=== PATIENT | male | born 1975 | race Caucasian/White ===

== ENCOUNTER → 2016-06-12 | Day surgery (SDC) | payer OTHER ==
[2016-06-11 12:11] LABS: ASPARTATE AMINO TRANSFERASE 14 U/L (15-37); BLOOD UREA NITROGEN 12 mg/dL (7-18)
[~2016-06-12] VITALS: Ht 182.9 cm; Wt 92.7 kg
[~2016-06-12] MED LIST: APIX5TAB PO; ASPI81TA50 PO; AZAT50TA9 PO; BIVALIRUDIN 250 MG ONE; CARV25TA12 PO; CLOP75TA22 PO; DIGO125T6 PO; DIGO250T PO; DIPHENHYDRAMINE 50 MG/ML, 1ML ONE; ENAL10TA46 PO; FENTANYL PF 100 MCG/2ML ONE; HEPARIN 1,000 UNITS/ML, 10ML ONE; LIDOCAINE 2%, 20ML ONE; MIDAZOLAM 1 MG/ML, 5ML ONE; VERAPAMIL 2.5 MG/ML, 2ML ONE; methylPREDNISolone SOD SUCC 125 MG/2 ML ONE
== END | disposition home or self-care (01) ==
LOC: CACL 10:23
PROVIDERS: ATTEND Internal Medicine Cardiovascular Disease
DX: I25.10 Atherosclerotic heart disease of native coronary artery without angina pectoris (principal); I25.82 Chronic total occlusion of coronary artery; I25.5 Ischemic cardiomyopathy; Z95.1 Presence of aortocoronary bypass graft; Z95.810 Presence of automatic (implantable) cardiac defibrillator; I48.0 Paroxysmal atrial fibrillation
CPT/HCPCS: 36415; 71020; 80053; 85025; 85610; 85730; 93459; C1760; C1894; J2250; J3010; J3490; Q9967; J0583; J1644; J1200; J2930

== ENCOUNTER 2016-08-04 07:19 | Observation (INO) | payer OTHER ==
[2016-08-01 09:09] VITALS: BP 109/75
[2016-08-01 09:57] LABS: ASPARTATE AMINO TRANSFERASE 65 U/L (15-37); BLOOD UREA NITROGEN 9 mg/dL (7-18)
[~2016-08-04] VITALS: Ht 182.9 cm; Wt 90.0 kg
[~2016-08-04 07:19] MED LIST changes: -BIVALIRUDIN 250 MG ONE; -DIPHENHYDRAMINE 50 MG/ML, 1ML ONE; -FENTANYL PF 100 MCG/2ML ONE; -HEPARIN 1,000 UNITS/ML, 10ML ONE; -LIDOCAINE 2%, 20ML ONE; -MIDAZOLAM 1 MG/ML, 5ML ONE; -VERAPAMIL 2.5 MG/ML, 2ML ONE; -methylPREDNISolone SOD SUCC 125 MG/2 ML ONE
[2016-08-04] MEDS ORDERED: SODIUM CHLORIDE 0.9% 1,000 ML IV SCH (07:35)
[2016-08-04] MEDS ORDERED: AMIO200T42 PO (07:48)
[2016-08-04] MEDS ORDERED: FENTANYL PF 250 MCG/5ML ONE (08:11)
[2016-08-04] MEDS ORDERED: MIDAZOLAM 1 MG/ML, 5ML ONE (08:12)
[2016-08-04] MEDS ORDERED: LIDOCAINE 2%, 20ML ONE (08:27)
[2016-08-04] MEDS ORDERED: DEXAMETHASONE 4 MG/ML, 1ML ONE (09:32)
[2016-08-04] MEDS ORDERED: ONDANSETRON 2MG/ML, 2ML ONE (09:32)
[2016-08-04] MEDS ORDERED: SUCCINYLCHOLINE 20 MG/ML, 10ML ONE (09:32)
[2016-08-04] MEDS ORDERED: PROPOFOL 10 MG/ML, 20ML ONE (09:32)
[2016-08-04] MEDS ORDERED: PROTAMINE SULFATE 10 MG/ML, 5ML ONE (11:20)
[2016-08-04] MEDS ORDERED: MIDAZOLAM 1 MG/ML, 2ML IV PRN (12:00)
[2016-08-04] MEDS ORDERED: FENTANYL PF 100 MCG/2ML IV PRN (12:00)
[2016-08-04] MEDS ORDERED: HYDROmorphone 1 MG/ML, 1ML IV PRN (12:00)
[2016-08-04] MEDS ORDERED: MEPERIDINE/PF 25MG/0.5ML IVPush PRN (12:00)
[2016-08-04] MEDS ORDERED: ZOLPIDEM 5MG TABLET PO PRN (12:00)
[2016-08-04] MEDS ORDERED: OXYcodone 5 MG/5 ML ORAL.SOL UDC PO PRN (12:00)
[2016-08-04] MEDS ORDERED: PROMETHAZINE 25 MG/ML, 1ML IV PRN (12:00)
[2016-08-04] MEDS ORDERED: ONDANSETRON 2MG/ML, 2ML IVPush PRN (12:00)
[2016-08-04] MEDS ORDERED: EPHEDRINE 50 MG/ML, 1ML IVPush PRN (12:00)
[2016-08-04] MEDS ORDERED: ACETAMINOPHEN 325 MG TABLET PO PRN ×2 (12:00)
[2016-08-04] MEDS ORDERED: ACETAMINOPHEN 650 MG/20.3 ML UDC ONE (12:21)
[2016-08-04] MEDS ORDERED: OXYcodone 5 MG/5 ML ORAL.SOL UDC ONE (12:21)
[2016-08-04 13:30] VITALS: BP 94/61
[2016-08-04 13:33] VITALS: BP 94/61
[2016-08-04] MEDS ORDERED: AMIODARONE 200 MG TABLET PO SCH (21:00)
[2016-08-04 21:25] VITALS: BP 94/60
[2016-08-04] MEDS: CARVEDILOL 12.5 MG TABLET PO SCH (21:29)
[2016-08-04] MEDS: APIXABAN 5 MG TABLET PO SCH (21:29)
[2016-08-05 02:41] VITALS: BP 97/63
[2016-08-05 07:05] VITALS: BP 105/72
[2016-08-05] MEDS: CARVEDILOL 12.5 MG TABLET PO SCH (08:37)
[2016-08-05] MEDS: APIXABAN 5 MG TABLET PO SCH (08:37)
[2016-08-05] MEDS ORDERED: ASPIRIN 81 MG TABLET EC PO SCH (09:00)
[2016-08-05] MEDS ORDERED: AZATHIOPRINE 50 MG TABLET PO SCH (09:00)
== END 2016-08-05 14:30 | disposition home or self-care (01) ==
LOC: CACL 07:19 → ORIP 11:40 → 5SO 13:17 → DCLOUNGE 08-05 13:50
PROVIDERS: ADMIT Internal Medicine Cardiovascular Disease; ATTEND Internal Medicine Cardiovascular Disease
DX: I48.91 Unspecified atrial fibrillation (principal); I48.92 Unspecified atrial flutter
CPT/HCPCS: 36415; 71020; 80053; 85025; 85347; 85610; 85730; 93005; 93306; 93613; 93655; 93656; 93662; C1730; C1731; C1732; C1759; C1766; C1893; C1894; G0378; J0330; J1100; J1644; J2250; J2405; J2704; J2720; J3010; J3490; J7500

== ENCOUNTER → 2017-01-22 | Outpatient (CLI) | payer OTHER ==
[~2017-01-22] MED LIST changes: +AMIO200T42 PO; -CLOP75TA22 PO; +CLOP75TA52 PO; -ENAL10TA46 PO; +ENAL10TA71 PO; +OMNIPAQUE 350 MG/ML, 100ML BOTTLE ONE
== END | disposition home or self-care (01) ==
LOC: RAD 14:37
PROVIDERS: ATTEND Specialist
DX: I51.7 Cardiomegaly (principal); M31.4 Aortic arch syndrome [Takayasu]
CPT/HCPCS: 71275; 74175; Q9967

== ENCOUNTER 2017-03-31 15:18 | Inpatient (IN) | payer OTHER ==
[~2017-03-31] VITALS: Ht 182.9 cm; Wt 88.1 kg
[~2017-03-31 15:18] MED LIST changes: -OMNIPAQUE 350 MG/ML, 100ML BOTTLE ONE
[2017-03-31] MEDS ORDERED: AMIODARONE 150 MG in DEXTROSE 5% 100 ML IV ONE (15:30)
[2017-03-31] MEDS ORDERED: SODIUM CHLORIDE 0.9% 1,000ML IVBOLUS ONE (15:30)
[2017-03-31] MEDS ORDERED: AMIODARONE 900 MG in DEXTROSE 5% 482 ML IV PRN (15:30)
[2017-03-31] MEDS ORDERED: SODIUM CHLORIDE FLUSH 10ML SYR IVF ONE (15:30)
[2017-03-31 15:55] LABS: BASOPHILS # (AUTO) 0.04 x10^3/uL (0-0.1); BASOPHILS % (AUTO) 1 % (0-1); EOSINOPHILS # (AUTO) 0.03 x10^3/uL (0-0.4); EOSINOPHILS % (AUTO) 0 % (1-7); LYMPHOCYTES # (AUTO) 2.41 x10^3/uL (1-3.4); LYMPHOCYTES % (AUTO) 24 % (22-44); MD NO; MEAN CORPUSCULAR HEMOGLOBIN 27.4 pg (27.5-34.5); MEAN CORPUSCULAR HGB CONC 32.7 g/dL (33.2-36.2); MEAN CORPUSCULAR VOLUME 83.6 fL (81-97); MEAN PLATELET VOLUME 10.6 fL (7.4-10.4); MONOCYTES # (AUTO) 0.81 x10^3/uL (0.2-0.8); MONOCYTES % (AUTO) 8 % (2-9); NEUTROPHILS # (AUTO) 6.71 x10^3/uL (1.8-6.8); NEUTROPHILS % (AUTO) 67 % (42-75); PLATELET COUNT 228 x10^3/uL (130-400); RED BLOOD COUNT 5.66 x10^6/uL (4.38-5.82); RED CELL DISTRIBUTION WIDTH 13.7 % (9.4-14.8)
[2017-03-31] MEDS ORDERED: FILTER 0.22 MICRON FOR AMIODARONE IV PRN (16:00)
[2017-03-31 16:02] LABS: ALANINE AMINOTRANSFERASE 22 U/L (12-78); ALBUMIN 4.2 g/dL (3.4-5.0); ANION GAP 11 mmol/L (5-15); CALCIUM 9.6 mg/dL (8.5-10.1); CHLORIDE 105 mmol/L (98-107); CREATININE 1.36 mg/dL (0.7-1.3)
[2017-03-31 16:04] LABS: ALKALINE PHOSPHATASE 73 U/L (45-117); BILIRUBIN,TOTAL 2.1 mg/dL (0.2-1.0); TOTAL PROTEIN 7.9 g/dL (6.4-8.2)
[2017-03-31] MEDS ORDERED: ENAL10TA PO (16:38)
[2017-03-31] MEDS ORDERED: POLYETHYLENE GLYCOL 17 GM PACKET PO PRN (17:00)
[2017-03-31] MEDS ORDERED: morphine SULFATE 10 MG/ML, 1ML IVPush PRN (17:00)
[2017-03-31] MEDS ORDERED: HYDROcodone/APAP 5/325 TABLET PO PRN (17:00)
[2017-03-31] MEDS ORDERED: ONDANSETRON 2MG/ML, 2ML IVPush PRN (17:00)
[2017-03-31] MEDS ORDERED: LABETALOL 5MG/ML, 20ML IVPush PRN (17:00)
[2017-03-31] MEDS ORDERED: ONDANSETRON ODT 4 MG PO PRN (17:00)
[2017-03-31 17:07] LABS: TROPONIN I < 0.015 ng/mL (0.000-0.045)
[2017-03-31 19:42] VITALS: BP 95/65
[2017-03-31 20:00] VITALS: BP 98/65
[2017-03-31] MEDS: ENALAPRIL 10 MG TABLET PO SCH (21:00)
[2017-03-31] MEDS ORDERED: ENALAPRIL 5MG TABLET ONE (21:56)
[2017-03-31 22:04] VITALS: BP 98/68
[2017-03-31] MEDS: ENOXAPARIN 40 MG/0.4 ML SQ SCH (22:17)
[2017-03-31] MEDS: CARVEDILOL 25 MG TABLET PO SCH (22:17)
[2017-03-31 23:59] LABS: TROPONIN I 0.023 ng/mL (0.000-0.045)
[2017-04-01 03:07] VITALS: BP 98/61
[2017-04-01 06:10] LABS: BASOPHILS # (AUTO) 0.03 x10^3/uL (0-0.1); BASOPHILS % (AUTO) 0 % (0-1); EOSINOPHILS # (AUTO) 0.06 x10^3/uL (0-0.4); EOSINOPHILS % (AUTO) 1 % (1-7); LYMPHOCYTES # (AUTO) 1.92 x10^3/uL (1-3.4); LYMPHOCYTES % (AUTO) 25 % (22-44); MD NO; MEAN CORPUSCULAR HGB CONC 33.3 g/dL (33.2-36.2); MEAN CORPUSCULAR VOLUME 84.1 fL (81-97); MEAN PLATELET VOLUME 11.1 fL (7.4-10.4); MONOCYTES # (AUTO) 0.54 x10^3/uL (0.2-0.8); MONOCYTES % (AUTO) 7 % (2-9); NEUTROPHILS # (AUTO) 5.08 x10^3/uL (1.8-6.8); NEUTROPHILS % (AUTO) 67 % (42-75); PLATELET COUNT 177 x10^3/uL (130-400); RED BLOOD COUNT 4.99 x10^6/uL (4.38-5.82); RED CELL DISTRIBUTION WIDTH 14.1 % (9.4-14.8)
[2017-04-01 06:13] LABS: CHLORIDE 109 mmol/L (98-107)
[2017-04-01 06:22] LABS: ALANINE AMINOTRANSFERASE 16 U/L (12-78); ALBUMIN 3.3 g/dL (3.4-5.0); ALKALINE PHOSPHATASE 59 U/L (45-117); ANION GAP 8 mmol/L (5-15); BILIRUBIN,TOTAL 1.6 mg/dL (0.2-1.0); CALCIUM 8.5 mg/dL (8.5-10.1); CREATININE 1.19 mg/dL (0.7-1.3); TOTAL PROTEIN 6.5 g/dL (6.4-8.2)
[2017-04-01 07:52] VITALS: BP 102/74
[2017-04-01] MEDS ORDERED: ENALAPRIL 5MG TABLET ONE ×2 (08:27→21:04)
[2017-04-01] MEDS: AZATHIOPRINE 50 MG TABLET PO SCH (08:36)
[2017-04-01] MEDS: ASPIRIN 81 MG TABLET EC PO SCH (08:36)
[2017-04-01] MEDS: CARVEDILOL 25 MG TABLET PO SCH ×2 (08:36→21:12)
[2017-04-01] MEDS: ENALAPRIL 10 MG TABLET PO SCH ×2 (08:38→21:00)
[2017-04-01] MEDS ORDERED: SENNA/DOCUSATE TABLET PO SCH (09:00)
[2017-04-01] MEDS ORDERED: CEFAZOLIN 1,000 MG ONE (12:45)
[2017-04-01] MEDS ORDERED: PROPOFOL 10 MG/ML, 50ML ONE (12:45)
[2017-04-01] MEDS: AMIODARONE 200 MG TABLET PO SCH (14:56)
[2017-04-01 20:54] VITALS: BP 100/69
[2017-04-01] MEDS: ENOXAPARIN 40 MG/0.4 ML SQ SCH (21:11)
[2017-04-02 04:15] VITALS: BP 95/63
[2017-04-02 05:12] LABS: ALBUMIN 3.4 g/dL (3.4-5.0); ANION GAP 7 mmol/L (5-15); CALCIUM 8.6 mg/dL (8.5-10.1); CHLORIDE 106 mmol/L (98-107)
[2017-04-02 05:14] LABS: CREATININE 1.44 mg/dL (0.7-1.3)
[2017-04-02 05:16] LABS: BASOPHILS % (AUTO) 0 % (0-1); EOSINOPHILS # (AUTO) 0.06 x10^3/uL (0-0.4); EOSINOPHILS % (AUTO) 1 % (1-7); LYMPHOCYTES % (AUTO) 12 % (22-44); MD NO; MEAN CORPUSCULAR HEMOGLOBIN 28.2 pg (27.5-34.5); MEAN CORPUSCULAR HGB CONC 33.4 g/dL (33.2-36.2); MEAN CORPUSCULAR VOLUME 84.5 fL (81-97); MEAN PLATELET VOLUME 10.7 fL (7.4-10.4); MONOCYTES # (AUTO) 0.74 x10^3/uL (0.2-0.8); MONOCYTES % (AUTO) 6 % (2-9); NEUTROPHILS # (AUTO) 9.97 x10^3/uL (1.8-6.8); NEUTROPHILS % (AUTO) 82 % (42-75); PLATELET COUNT 190 x10^3/uL (130-400); RED CELL DISTRIBUTION WIDTH 13.8 % (9.4-14.8)
[2017-04-02 07:40] VITALS: BP 96/66
[2017-04-02] MEDS ORDERED: SODIUM CHLORIDE 0.9%, 500ML IVBOLUS ONE (08:00)
[2017-04-02] MEDS ORDERED: ENALAPRIL 5MG TABLET ONE (08:22)
[2017-04-02] MEDS ORDERED: ACETAMINOPHEN 325 MG TABLET ONE (08:40)
[2017-04-02] MEDS: AZATHIOPRINE 50 MG TABLET PO SCH (08:42)
[2017-04-02] MEDS: ASPIRIN 81 MG TABLET EC PO SCH (08:42)
[2017-04-02] MEDS: CARVEDILOL 25 MG TABLET PO SCH (08:42)
[2017-04-02] MEDS: AMIODARONE 200 MG TABLET PO SCH (08:43)
[2017-04-02] MEDS: ENALAPRIL 10 MG TABLET PO SCH (08:47)
[2017-04-02] MEDS ORDERED: ACETAMINOPHEN 325 MG TABLET PO PRN (09:00)
[2017-04-02] MEDS ORDERED: AMIO200T42 PO (11:30)
== END 2017-04-02 12:10 | disposition home or self-care (01) | DRG 309 ==
LOC: ED 16:31 → EDIP 16:33 → 5SO 19:34 → DCLOUNGE 04-02 12:00
PROVIDERS: ADMIT Hospitalist; ATTEND Hospitalist
PROC: 5A2204Z Restoration of Cardiac Rhythm, Single (ICD-10-PCS; principal; 2017-03-31)
DX: I48.0 Paroxysmal atrial fibrillation (principal); D68.69 Other thrombophilia; I47.2 Ventricular tachycardia; I25.82 Chronic total occlusion of coronary artery; I71.2 Thoracic aortic aneurysm, without rupture; D72.829 Elevated white blood cell count, unspecified; I48.92 Unspecified atrial flutter; G47.30 Sleep apnea, unspecified; I10 Essential (primary) hypertension; I25.10 Atherosclerotic heart disease of native coronary artery without angina pectoris; I25.5 Ischemic cardiomyopathy; I34.0 Nonrheumatic mitral (valve) insufficiency; I44.7 Left bundle-branch block, unspecified; I51.89 Other ill-defined heart diseases; I77.6 Arteritis, unspecified; Z79.82 Long term (current) use of aspirin; I25.2 Old myocardial infarction; Z79.899 Other long term (current) drug therapy; Z87.891 Personal history of nicotine dependence; Z95.810 Presence of automatic (implantable) cardiac defibrillator; Z91.041 Radiographic dye allergy status; Z88.0 Allergy status to penicillin; Z91.013 Allergy to seafood; Z95.1 Presence of aortocoronary bypass graft
CPT/HCPCS: 36415; 71045; 80048; 80053; 82040; 83735; 84100; 84484; 85025; 92960; 93005; 96365; 96366; 96375; J0690; J1650; J2704; J7500; J0282; J7030; J7040; J7060

== ENCOUNTER 2018-05-25 09:40 | Day surgery (SDC) | payer OTHER ==
[~2018-05-25] VITALS: Ht 182.9 cm; Wt 95.0 kg
[~2018-05-25 09:40] MED LIST changes: -DIGO125T6 PO; +DIGO125T81 PO; +ENAL10TA PO
[2018-05-25] MEDS ORDERED: AZAT50TA9 PO (10:15)
[2018-05-25] MEDS ORDERED: CLOP75TA52 PO (10:15)
[2018-05-25] MEDS ORDERED: SACU1TAB PO (10:15)
[2018-05-25] MEDS ORDERED: FURO40TA6 PO (10:15)
[2018-05-25] MEDS ORDERED: NALOXONE 0.4 MG/ML, 1ML IVPush PRN ×2 (10:30)
[2018-05-25] MEDS ORDERED: PROPOFOL 10 MG/ML, 20ML ONE (10:49)
[2018-05-25] MEDS ORDERED: SODIUM CHLORIDE 0.9% 1,000 ML IV ONE (11:00)
== END 2018-05-25 11:40 | disposition home or self-care (01) ==
LOC: CACL 09:40
PROVIDERS: ATTEND Internal Medicine Cardiovascular Disease
DX: I34.0 Nonrheumatic mitral (valve) insufficiency (principal); I25.5 Ischemic cardiomyopathy; I36.1 Nonrheumatic tricuspid (valve) insufficiency; I48.0 Paroxysmal atrial fibrillation; G47.30 Sleep apnea, unspecified; I47.2 Ventricular tachycardia; Z79.82 Long term (current) use of aspirin; Z95.810 Presence of automatic (implantable) cardiac defibrillator
CPT/HCPCS: 93312; 93325; J2704

== ENCOUNTER 2018-08-20 08:26 | Day surgery (SDC) | payer OTHER ==
[~2018-08-20] VITALS: Ht 182.9 cm; Wt 85.0 kg
[2018-08-20 09:08] VITALS: BP 91/71
== END 2018-08-20 11:10 | disposition home or self-care (01) ==
LOC: CACL 08:26
PROVIDERS: ATTEND Internal Medicine Cardiovascular Disease
DX: I48.2 Chronic atrial fibrillation (principal); I08.3 Combined rheumatic disorders of mitral, aortic and tricuspid valves; I25.5 Ischemic cardiomyopathy; Z79.82 Long term (current) use of aspirin; Z79.02 Long term (current) use of antithrombotics/antiplatelets; Z79.899 Other long term (current) drug therapy; Z88.0 Allergy status to penicillin; Z91.041 Radiographic dye allergy status; Z95.810 Presence of automatic (implantable) cardiac defibrillator
CPT/HCPCS: 36415; 80048; 85610; 92960; 93312; 93321; 93325; J2704